=== PATIENT | female | born 1995 | race Caucasian/White ===

== ENCOUNTER 2024-06-05 06:30 | Inpatient (IN) | payer SELFPAY ==
[2024-06-04 18:30] VITALS: BP 107/62; PULSE 85; TEMP 98
[~2024-06-05] VITALS: Ht 175.3 cm; Wt 95.0 kg
[2024-06-05] VITALS (56 sets, daily range): BP systolic 96–153; BP diastolic 51–82; PULSE 61–116; TEMP 97.9–98.2
[~2024-06-05 06:30] MED LIST: LR & Oxytocin 500 ML IV SCH; LR 1,000 ML IV SCH
--- NOTE | 2024-06-05 06:45 | NUR ---
PT AMBULATORY TO UNIT WITH SPOUSE FOR SCHEDULED INDUCTION OF LABOR, PT ORIENTED TO ROOM AND CHANGED INTO GOWN. PT ORIENTED TO PLAN OF CARE. PT REPORTS FEELING IRREGULAR "LON MEYERS" CONTRACTIONS, REPORTS NOT IN PAIN, DENIES VAGINAL BLEEDING, DENIES LEAKING OF FLUID, REPORTS POSITIVE MOVEMENT. EFM CAT 1, BASELINE 150'S, ADEQUATE ACCELS, NO DECELS, MODERATE VARIABILITY. DISCUSSED FHR CHANGES, EARLY LABOR, PITOCIN, AND EPIDURAL. PT SMILING AND POSITIVE WITH SPOUSE SUPPORTIVE AT BEDSIDE. PT VS STABLE AND COMFORTABLE AT THIS TIME.
[2024-06-05] MEDS ORDERED: PRENATAL TABLET PO (07:06)
[2024-06-05 07:40] LABS: BASO % 0.3 % (0.0-2.0); EOS % 0.4 % (0.0-4.0); GRAN # 7.6 K/mm3 (1.4-6.5); HEMOGLOBIN 11.2 g/dl (12.5-16.0); LYMPH # 1.7 K/mm3 (1.2-3.4); LYMPH % 16.7 % (20.0-51.0); MEAN CELL VOLUME 91 fl (80.0-100.0); MEAN CORPUSCULAR HEMOGLOBIN 30 pg (27-31); MEAN CORPUSCULAR HGB CONC 33 g/dl (33.0-37.0); MEAN PLATELET VOLUME 12.7 fl (7.4-10.4); MONO # 0.9 K/mm3 (0.1-0.6); MONO % 8.9 % (1.7-9.3); PLATELET COUNT 141 K/mm3 (130-400); RED BLOOD COUNT 3.72 M/mm3 (4.10-5.30); REDCELL DISTRIBUTION WIDTH-CV 12.6 % (11.5-14.5)
[2024-06-05 07:42] LABS: HEMATOCRIT 33.7 % (37.0-47.0)
[2024-06-05] MEDS ORDERED: Naloxone 0.4 MG/ML VIAL IV PRN ×2 (08:00→21:15)
[2024-06-05] MEDS ORDERED: Ondansetron 4 MG/2 ML VIAL IV PRN (08:00)
[2024-06-05] MEDS ORDERED: diphenhydrAMINE 50 MG/ML 1 ML VIAL IV PRN (08:00)
[2024-06-05] MEDS ORDERED: diphenhydrAMINE 25 MG CAP PO PRN (08:00)
[2024-06-05] MEDS ORDERED: ePHEDrine 50 MG/10 ML VIAL IV PRN (08:00)
--- NOTE | 2024-06-05 13:45 | NUR ---
UNABLE TO TRACE EFM DUE TO MATERNAL POSITION ON BIRTHING BALL. PT VS STABLE, THIS RN AT PT BEDSIDE ATTEMPTING TO TRACE.
--- NOTE | 2024-06-05 15:03 | NUR ---
1455 KESHAV RUSSIAN TEACHER AT PT BEDSIDE DISCUSSING EPIDURAL PROCEDURE WITH PT AND SPOUSE, PT VERBALLY UNDERSTANDING AND CONSENTING. PT SITTING UP ON BED, DIFFICULT TO TRACE EFM AND TOCO DUE TO PT POSITION. PT VS STABLE, AWAKE AND ALERT X3 1502 SINGLE SHOT ADMINISTERED PER KESHAV RUSSIAN TEACHER. PT TOLERATED WELL. PT VS STABLE, AWAKE AND ALERT X3. PT REPOSITIONED COMFORTABLY WEDGE LEFT AND THIS RN AT PT BEDSIDE.
[2024-06-05] MEDS ORDERED: ROPivacaine PF 0.2% 200 ML IV ONE (15:11)
--- NOTE | 2024-06-05 18:20 | NUR ---
PCR.SUMA assumes care. Pt relaxed, comfortable, social. FHT's category 1. Pt laboring down r/t Dr's being in C/Section.
--- NOTE | 2024-06-05 19:15 | NUR ---
FHT's with early decel for each ctx, [address] Feng into room, gives ok to start pushing. 1919 Piushing instructions given.
--- NOTE | 2024-06-05 19:30 | NUR ---
FHT's with early deceleration down to 90's-100's. Pushing well.
--- NOTE | 2024-06-05 19:45 | NUR ---
placenta delivers spont and intact with 3 vessel cord. Pitocin gtt to bolus rate. Brisk bleeding, fundal massage by Dr Feng, no clots, fundus firms and bleeding slows briefly. Perineal inspection by Dr Feng reveals 2nd lac. 1948 TXA slow IV push given. Fundal massage, fundus firming no clots. Bilateral sidewall lacs, repair begun. 1999 Repair complete, bleeding minimal no clots expressed with fundal massage. Pericare completed, ice pack to perineum, bed back together. Pt relaxed and social.
[2024-06-05] MEDS ORDERED: Tranexamic Acid 1,000 MG/10 ML VIAL IV ONE (19:49)
[2024-06-05] MEDS ORDERED: Loratadine 10 MG TAB PO PRN (20:15)
[2024-06-05] MEDS ORDERED: Magnes Hydrox (MOM) 80 MG/ML 30 ML CUP PO PRN (20:15)
[2024-06-05] MEDS ORDERED: traZODone 50 MG TAB PO PRN (21:00)
[2024-06-05] MEDS ORDERED: Ibuprofen 600 MG TAB PO SCH (21:15)
[2024-06-05] MEDS ORDERED: Measles/Mumps/Rubella Virus Vaccine Live w Diluent 0.5 ML VIAL SQ SCH (21:15)
[2024-06-05] MEDS ORDERED: oxyCODONE 5 MG TAB PO PRN (21:15)
[2024-06-05] MEDS ORDERED: Witch Hazel 50% Pads Bulk TUB TP PRN (21:15)
[2024-06-05] MEDS ORDERED: Phenylephrine/Mineral Oil/Petrolatum 57 GM TUBE RC PRN (21:15)
[2024-06-05] MEDS ORDERED: Acetaminophen 500 MG TAB PO SCH (21:15)
[2024-06-05] MEDS ORDERED: Mag/Al Hydrox/Simeth Susp 30 ML CUP PO PRN (21:15)
--- NOTE | 2024-06-05 22:30 | NUR ---
To bathroom with assist of 'smita steady' unable to void @ this time. Performs own pericare after instruction. Ice pack, panties, clean gown on. Pt 'walks' from toilet to bathroom sink, this RN provides stabilization. PT's knees give slightly, steadies self on sink. To post- room via 'smita steady'. Pt and spouse orineted to room, plan of care. Pt and spouse instructed to call when pt needs to get up to bathroom. Both verbalize understanding.
[2024-06-06 04:09] VITALS: BP 118/62; PULSE 82; TEMP 98.2
[2024-06-06 07:11] LABS: HEMATOCRIT 27.9 % (37.0-47.0)
[2024-06-06 07:12] LABS: HEMOGLOBIN 9.2 g/dl (12.5-16.0)
[2024-06-06 07:19] VITALS: BP 121/67; PULSE 80; TEMP 98
[2024-06-06] MEDS ORDERED: Sennosides/Docusate 8.6-50 MG TAB PO SCH (08:00)
[2024-06-06] MEDS ORDERED: Ferrous Sulfate 325 MG TAB PO SCH (08:34)
[2024-06-06] MEDS ORDERED: Prenatal Vitamins/Iron/FA TAB PO SCH (09:00)
[2024-06-06 11:00] VITALS: BP 109/67; PULSE 68
[2024-06-06 16:30] VITALS: BP 111/68; PULSE 70; TEMP 97.7
[2024-06-06 20:00] VITALS: BP 134/56; PULSE 86; TEMP 98.1
[2024-06-07 08:45] VITALS: BP 118/60; PULSE 76; TEMP 97.9
== END 2024-06-07 15:10 | disposition home or self-care (01) | DRG 806 ==
LOC: EDSTATUS 06:30 → LDR 06:34 → LDRO 15:56 → OB 23:15
PROVIDERS: ADMIT Obstetrics & Gynecology
PROC: 10E0XZZ Delivery of Products of Conception, External Approach (ICD-10-PCS; principal; 2024-06-05)
PROC: 0KQM0ZZ Repair Perineum Muscle, Open Approach (ICD-10-PCS; 2024-06-05)
PROC: 10907ZC Drainage of Amniotic Fluid, Therapeutic from Products of Conception, Via Natural or Artificial Opening (ICD-10-PCS; 2024-06-05)
PROC: 3E033VJ Introduction of Other Hormone into Peripheral Vein, Percutaneous Approach (ICD-10-PCS; 2024-06-05)
DX: O36.5930 Maternal care for other known or suspected poor fetal growth, third trimester, not applicable or unspecified (principal); D62 Acute posthemorrhagic anemia; Z37.0 Single live birth; O72.1 Other immediate postpartum hemorrhage; O70.1 Second degree perineal laceration during delivery; Z3A.39 39 weeks gestation of pregnancy; O90.81 Anemia of the puerperium
CPT/HCPCS: J2590; J2795; J7120